=== PATIENT | male | born 1960 ===

== ENCOUNTER 2018-01-03 10:29 | Emergency (ER) | payer MEDICAID ==
[2018-01-03 11:11] VITALS: RESP 20
--- NOTE | 2018-01-03 12:16 | C.PDOC ---
History Of Present Illness 57-year-old male, presents to the emergency department with complaints of frontal headache and nasal congestion, that is consistent with his prior sinusitis symptoms. Patient denies numbness/weakness, visual/hearing changes, slurred speech or any other associated symptoms. No other complaints at this time Time Seen by Provider: 01/03/18 11:48 Chief Complaint (Nursing): Headache History Per: Patient History/Exam Limitations: no limitations Onset/Duration Of Symptoms: Days Current Symptoms Are (Timing): Still Present Severity: Moderate Past Medical History Reviewed: Historical Data, Nursing Documentation, Vital Signs Vital Signs: Last Vital Signs Temp 98.1 F 01/03/18 12:27 Pulse 90 01/03/18 12:27 Resp 20 01/03/18 12:27 BP 117/82 01/03/18 12:27 Pulse Ox 98 01/03/18 12:27 Family History: States: No Known Family Hx - Social History Hx Alcohol Use: No Hx Substance Use: No - Immunization History Hx Tetanus Toxoid Vaccination: No Hx Influenza Vaccination: Yes Hx Pneumococcal Vaccination: No Review Of Systems Except As Marked, All Systems Reviewed And Found Negative. Constitutional: Negative for: Fever, Chills ENT: Positive for: Nose Congestion Respiratory: Negative for: Shortness of Breath Gastrointestinal: Negative for: Nausea, Vomiting Musculoskeletal: Negative for: Neck Pain, Back Pain Neurological: Positive for: Headache. Negative for: Weakness, Numbness, Dizziness Physical Exam - Physical Exam Appears: Well, Non-toxic, No Acute Distress Skin: Normal Color, Warm, Dry, No Rash Head: Normacephalic, Tenderness (sinus) Eye(s): bilateral: PERRL, EOMI Ear(s): Bilateral: Normal Nose: Normal, No Flaring, No Discharge Oral Mucosa: Moist Lips: Normal Appearing Throat: No Erythema, No Exudate Neck: Normal ROM, Trachea Midline, Supple, Other ((-)meningeal signs) Chest: Symmetrical Cardiovascular: Rhythm Regular, No Murmur Respiratory: Normal Breath Sounds, No Accessory Muscle Use Extremity: Normal ROM Neurological/Psych: Oriented x3, Normal Speech ED Course And Treatment O2 Sat by Pulse Oximetry: 97 (RA) Pulse Ox Interpretation: Normal Progress Note: Patient treated with Sudafed. On reassessment, Patient is resting comfortably, is tolerating PO, and no longer has headache, neurologic deficit, photophobia, rash, fever, or nuchal rigidity. Patient was instructed to follow up with physician/clinic in 1-2 days. Disposition Counseled Patient/Family Regarding: Diagnosis, Need For Followup, Rx Given - Disposition Referrals: Ezio Child MD [Staff Provider] - Disposition: HOME/ ROUTINE Disposition Time: 12:30 Condition: STABLE Additional Instructions: SEGUIMIENTO CON ESPECIALISTA DE GARGANTA DE LA NARIZ DE [place] USE MEDICAMENTOS SEGN SEA NECESARIO REGRESE AL MARIAH DE EMERGENCIA SI LOS SNTOMAS EMPEORAN Prescriptions: Pseudoephedrine [Sudafed] 60 mg PO Q6 PRN #15 tab PRN Reason: Nasal Congestion Instructions: Rhinosinusitis (ED) Forms: [employer] (Malay) Print Language: DANISH - Clinical Impression Clinical Impression: Sinus pressure, Nasal congestion, Viral sinusitis - Scribe Statement The provider has reviewed the documentation as recorded by the Scribe (Lorene Burch) All medical record entries made by the Scribe were at my direction and personally dictated by me. I have reviewed the chart and agree that the record accurately reflects my personal performance of the history, physical exam, medical decision making, and the department course for this patient. I have also personally directed, reviewed, and agree with the discharge instructions and disposition.
[2018-01-03 12:27] VITALS: BP 117/82; PULSE 90; TEMP 98.1
[2018-01-03 17:12] VITALS: O2SAT 97
== END 2018-01-03 12:30 | disposition home or self-care (01) ==
LOC: C.ER 10:29
DX: J32.9 Chronic sinusitis, unspecified (principal); R09.81 Nasal congestion